=== PATIENT | male | born 1985 ===

== ENCOUNTER 2023-10-16 14:00 | Emergency (ER) | payer BC ==
[2023-10-16 14:52] LABS: #Basophils 0.1 10x3/uL (0.0-0.2); #Eosinphils 0.3 10x3/uL (0.0-0.5); #Monocytes 0.9 10x3/uL (0.0-1.1); #Neutrophils 10.3 10x3/uL (1.5-8.4); %Basophils 0.7 % (0.0-2.0); %Eosinophils 2.4 % (0.0-6.0); %Lymphocytes 12.1 % (18.0-47.0); %Monocytes 6.6 % (0.0-10.0); %Neutrophils 77.9 % (40.0-75.0); Hematocrit 46.3 % (38.8-50.0); Hemoglobin 15.8 g/dL (13.5-17.5); Mean Corpuscular HGB CONC 34.1 g/dL (32.0-36.0); Mean Corpuscular Hemoglobin 26.7 pg (27.0-33.0); Mean Corpuscular Volume 78.2 fl (81.2-95.1); Mean Platelet Volume 9.6 fl (7.4-10.4); Platelet Count 264 10x3/uL (150-450); RBC Distribution Width 13.6 % (11.5-14.5); Red Blood Cell (RBC) Count 5.92 10x6/uL (4.32-5.72); White Blood Cell (WBC) Count 13.2 10x3/uL (3.5-10.5)
[2023-10-16 14:59] LABS: ALT (SGPT) 37 U/L (8-55); AST (SGOT) 18 U/L (5-34); Albumin 4.6 g/dL (3.5-5.0); Alkaline Phosphatase 74 U/L (40-110); Anion Gap 12 mmol/L (10-20); BUN (Urea Nitrogen) 12 mg/dL (8.9-20.6); Bilirubin, Total 0.3 mg/dL (0.2-1.2); Calc. Creatinine Clearance 0 mL/min (70-130); Calcium 9.5 mg/dL (7.8-10.44); Carbon Dioxide 26 mmol/L (22-29); Chloride 102 mmol/L (98-107); Estimated GFR 93; Globulin 2.8 g/dL (2.4-3.5); Glucose 100 mg/dL (70-105); Lipase 17 U/L (8-78); Potassium 4.4 mmol/L (3.5-5.1); Protein, Total 7.4 g/dL (6.0-8.3); Sodium 136 mmol/L (136-145)
[2023-10-16 15:05] LABS: Troponin I Less than 0.010 ng/mL (< 0.028)
== END 2023-10-16 15:42 | disposition home or self-care (01) ==
LOC: CSHERS 14:00
DX: R07.9 Chest pain, unspecified (principal); F43.0 Acute stress reaction; Z55.6 Problems related to health literacy; Z75.3 Unavailability and inaccessibility of health-care facilities
CPT/HCPCS: 36415; 71045; 80053; 83690; 84484; 85025; 93005